=== PATIENT | male | born 1995 | race Hispanic/Latino ===

== ENCOUNTER 2021-06-04 09:03 | Emergency (ER) | payer SELFPAY ==
--- NOTE | 2021-06-04 10:08 | RAD REPORT ---
EXAM DESCRIPTION: RAD - Chest Single View - 06/04/2021 9:57 am CLINICAL HISTORY: COUGH Chest pain. COMPARISON: No comparisons FINDINGS: Portable technique limits examination quality. Interstitial markings are mildly prominent, nonspecific but can indicate viral infection/bronchitis. The heart is normal in size. No displaced fractures.
[2021-06-04 11:11] LABS: Absolute Lymphocytes (CBC) 1.3 K/uL (0.7-4.9); Basophils % 1.3 % (0-1.3); Lymphocytes % 19.8 % (15.3-44.8); MPV 8.9 fL (7.6-11.3); RBC Red Blood Cell Count 5.18 M/uL (4.33-5.43)
[2021-06-04 11:22] LABS: Magnesium 2.6 mg/dL (1.8-2.4); Potassium 3.7 mmol/L (3.5-5.1)
--- NOTE | 2021-06-04 12:51 | ER ---
Nurse's Notes [facility] Name: Rocky Brown Age: 26 yrs Sex: Male : 1995 Arrival Date: 06/04/2021 Time: 09:06 Bed 17 Private MD: Diagnosis: Dehydration;SARS-associated coronavirus as the cause of diseases classified elsewhere Presentation: 06/04 09:16 Chief complaint: Patient states: cough, fatigue, decreased appetite and diarrhea that ss began 10 days. Pt had a negative Covid test at [facility] Friday, but is not feeling any better. Coronavirus screen: Client denies travel out of the [place] in the last 14 days. Ebola Screen: Patient denies exposure to infectious person. Patient denies travel to an Ebola-affected area in the 21 days before illness onset. 09:16 Method Of Arrival: Ambulatory ss 09:21 Initial Sepsis Screen: Does the patient meet any 2 criteria? No. Patient's initial ss sepsis screen is negative. Does the patient have a suspected source of infection? No. Patient's initial sepsis screen is negative. Risk Assessment: Do you want to hurt yourself or someone else? Patient reports no desire to harm self or others. Onset of symptoms was May 25, 2021. 09:21 Acuity: PEGGY 3 ss Triage Assessment: 09:16 General: Appears distressed, uncomfortable, Behavior is cooperative, appropriate for bp age, anxious. Pain: Denies pain. EENT: No signs and/or symptoms were reported regarding the EENT system. Neuro: Level of Consciousness is awake, alert, obeys commands, Oriented to Appropriate for age. Cardiovascular: No deficits noted. Respiratory: Reports cough that is. GI: Reports diarrhea. : No signs and/or symptoms were reported regarding the genitourinary system. Derm: No deficits noted. Musculoskeletal: No deficits noted. Historical: - Allergies: 09:21 No Known Allergies; ss - Home Meds: : None [Active]; ss - PMHx: 09: None; ss - PSHx: 09: None; ss - Immunization history:: Adult Immunizations unknown, Client reports having NOT received the Covid vaccine. - Social history:: Smoking status: Patient denies any tobacco usage or history of. Screenin: Abuse screen: Denies threats or abuse. Denies injuries from another. Nutritional ss screening: No deficits noted. Tuberculosis screening: Never had TB. Fall Risk None identified. Assessment: 09:16 General: SEE TRIAGE NOTE. bp Vital Signs: 09:16 BP 102 / 69; Pulse 84; Resp 18; Temp 97.3(TE); Pulse Ox 100% on R/A; Pain 0/10; ss 10:30 BP 114 / 80 Supine; Pulse 65; bp 10:33 BP 122 / 80 Sitting; Pulse 68; bp 10:37 BP 117 / 93 Standing; Pulse 64; bp 12:00 BP 123 / 79; Pulse 71; Resp 16; Pulse Ox 100% ; bp 13:00 BP 115 / 73; Pulse 75; Resp 17; Temp 97.5; Pulse Ox 100% ; bp ED Course: 09:06 Patient arrived in ED. mr 09:13 Hector Lomax, RN is Primary Nurse. bp 09:19 Ruy Hemphill, PA is PHCP. jr8 09:19 Zach Damon MD is Attending Physician. jr8 09:19 Griffin Oliveira MD is Attending Physician. jr8 09:21 Triage completed. ss 09:21 Arm band placed on right wrist. ss 09:22 Patient has correct armband on for positive identification. Bed in low position. Call ss light in reach. Side rails up X 1. Pulse ox on. NIBP on. 09:22 Patient maintains SpO2 saturation greater than 95% on room air. ss 09:57 XRAY Chest (1 view) In Process Unspecified. EDMS 10:59 Inserted saline lock: 20 gauge in right antecubital area, using aseptic technique. bp Blood collected. 14:17 No provider procedures requiring assistance completed. IV discontinued, intact, bp bleeding controlled, No redness/swelling at site. Pressure dressing applied. Administered Medications: 10:45 Drug: NS 0.9% 1000 ml Route: IV; Rate: 1000 ml; Site: right antecubital; bp 14:18 Follow up: IV Status: Completed infusion; IV Intake: 1000ml bp Intake: 14:18 IV: 1000ml; Total: 1000ml. bp Outcome: 12:50 Discharge ordered by . jr8 14:17 Discharged to home ambulatory, with family. bp 14:17 Condition: stable 14:17 Discharge instructions given to patient, family, Instructed on discharge instructions, follow up and referral plans. medication usage, Demonstrated understanding of instructions, follow-up care, medications, Prescriptions given X 1. 14:18 Patient left the ED. bp Signatures: Dispatcher [employer] ED Candy Burns Sissy Simmons, RN RN Ruy Hemphill, XUAN GOVEA jr8 Hector Lomax, RN RN bp Corrections: (The following items were deleted from the chart) 10:34 09:21 Acuity: PEGGY 4 [facility] 11:42 10:59 CORONAVIRUS+MR.UCHE.HALEY drawn and sent. bp EDMS
--- NOTE | 2021-06-04 12:51 | EDPHYS ---
Physician Documentation [facility] Name: Rocky Brown Age: 26 yrs Sex: Male : 1995 Arrival Date: 06/04/2021 Time: 09:06 Bed 17 Private MD: ED Physician Griffin Oliveira HPI: 06/04 10:16 This 26 yrs old Male presents to ER via Ambulatory with complaints of jr8 Weakness, Cough, Diarrhea. 10:16 Patient stated that he started with diarrhea about 10 days ago which has not resolved. jr8 Stated that he has nausea with eating and dry cough. Was tested at [facility] a few days ago and had negative flu and covid results. Today while at work he started to feel like he was going to pass out. 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 Onset: The symptoms/episode began/occurred acutely. Severity of symptoms: At their worst the symptoms were moderate in the emergency department the symptoms have improved mildly. The patient has not experienced similar symptoms in the past. The patient has not recently seen a physician. Historical: - Allergies: 09:21 No Known Allergies; ss - Home Meds: 09:21 None [Active]; ss - PMHx: 09:21 None; ss - PSHx: 09:21 None; ss - Immunization history:: Adult Immunizations unknown, Client reports having NOT received the Covid vaccine. - Social history:: Smoking status: Patient denies any tobacco usage or history of. ROS: 10:16 Eyes: Negative for injury, pain, redness, and discharge, ENT: Negative for injury, jr8 pain, and discharge, Neck: Negative for injury, pain, and swelling, Cardiovascular: Negative for chest pain, palpitations, and edema, Back: Negative for injury and pain, MS/Extremity: Negative for injury and deformity, Skin: Negative for injury, rash, and discoloration. 10:16 Abdomen/GI: Positive for nausea, diarrhea, Negative for abdominal pain. 10:16 Neuro: Positive for near syncope. 10:16 Constitutional: Positive for fever. jr8 10:16 Respiratory: Positive for cough, Negative for dyspnea on exertion, shortness of breath, sputum production, wheezing. Exam: 10:16 Constitutional: This is a well developed, well nourished patient who is awake, alert, jr8 and in no acute distress. Eyes: Pupils equal round and reactive to light, extra-ocular motions intact. Lids and lashes normal. Conjunctiva and sclera are non-icteric and not injected. Cornea within normal limits. Periorbital areas with no swelling, redness, or edema. ENT: Nares patent. No nasal discharge, no septal abnormalities noted. Tympanic membranes are normal and external auditory canals are clear. Oropharynx with no redness, swelling, or masses, exudates, or evidence of obstruction, uvula midline. Mucous membranes moist. Neck: Trachea midline, no thyromegaly or masses palpated, and no cervical lymphadenopathy. Supple, full range of motion without nuchal rigidity, or vertebral point tenderness. No Meningismus. Cardiovascular: Regular rate and rhythm with a normal S1 and S2. No gallops, murmurs, or rubs. Normal PMI, no JVD. No pulse deficits. Respiratory: Lungs have equal breath sounds bilaterally, clear to auscultation and percussion. No rales, rhonchi or wheezes noted. No increased work of breathing, no retractions or nasal flaring. Abdomen/GI: Soft, non-tender, with normal bowel sounds. No distension or tympany. No guarding or rebound. No evidence of tenderness throughout. Back: No spinal tenderness. No costovertebral tenderness. Full range of motion. Skin: Warm, dry with normal turgor. Normal color with no rashes, no lesions, and no evidence of cellulitis. MS/ Extremity: Pulses equal, no cyanosis. Neurovascular intact. Full, normal range of motion. Neuro: Awake and alert, GCS 15, oriented to person, place, time, and situation. Cranial nerves II-XII grossly intact. Motor strength 5/5 in all extremities. Sensory grossly intact. Vital Signs: 09:16 BP 102 / 69; Pulse 84; Resp 18; Temp 97.3(TE); Pulse Ox 100% on R/A; Pain 0/10; ss 10:30 BP 114 / 80 Supine; Pulse 65; bp 10:33 BP 122 / 80 Sitting; Pulse 68; bp 10:37 BP 117 / 93 Standing; Pulse 64; bp 12:00 BP 123 / 79; Pulse 71; Resp 16; Pulse Ox 100% ; bp 13:00 BP 115 / 73; Pulse 75; Resp 17; Temp 97.5; Pulse Ox 100% ; bp MDM: 09:19 Patient medically screened. [id number] 11:43 Data reviewed: vital signs, nurses notes, lab test result(s), EKG, and as a result, I 8 will discharge patient. Data interpreted: Pulse oximetry: on room air is 100 %. Interpretation: normal. Counseling: I had a detailed discussion with the patient and/or guardian regarding: the historical points, exam findings, and any diagnostic results supporting the discharge/admit diagnosis, lab results, the need for outpatient follow up, a family practitioner, to return to the emergency department if symptoms worsen or persist or if there are any questions or concerns that arise at home. 06/04 09:46 Order name: Basic Metabolic Panel; Complete Time: 11:23 06/04 09:46 Order name: CBC with Diff; Complete Time: 11:18 06/04 09:46 Order name: Magnesium; Complete Time: 11:23 06/04 09:46 Order name: XRAY Chest (1 view); Complete Time: 10:15 06/04 12:47 Order name: SARS-COV-2 RT PCR; Complete Time: 12:51 EDMS 06/04 09:46 Order name: Orthostatics; Complete Time: 10:59 06/04 09:46 Order name: EKG; Complete Time: 09:48 06/04 09:46 Order name: Cardiac monitoring; Complete Time: 10:58 06/04 09:46 Order name: EKG - Nurse/Tech; Complete Time: 10:58 06/04 09:46 Order name: IV Saline Lock; Complete Time: 10:59 06/04 09:46 Order name: Labs collected and sent; Complete Time: 10:59 06/04 09:46 Order name: O2 Sat Monitoring; Complete Time: 09:48 Administered Medications: 10:45 Drug: NS 0.9% 1000 ml Route: IV; Rate: 1000 ml; Site: right antecubital; bp 14:18 Follow up: IV Status: Completed infusion; IV Intake: 1000ml bp Disposition: 16:56 Co-signature as Attending Physician, Griffin Oliveira MD. rn Disposition Summary: 06/04/21 12:50 Discharge Ordered Location: Home jr8 Problem: new jr8 Symptoms: have improved jr8 Condition: Stable jr8 Diagnosis - Dehydration jr8 - SARS-associated coronavirus as the cause of diseases classified elsewhere jr8 Followup: jr8 - With: Private Physician - When: 1 week - Reason: Recheck today's complaints, Continuance of care, Re-evaluation by your physician Discharge Instructions: - Discharge Summary Sheet jr8 - Dehydration, Adult jr8 - Rehydration, Adult jr8 - COVID-19 jr8 Forms: - Work release form ss - Medication Reconciliation Form jr8 - Thank You Letter jr8 - Antibiotic Education jr8 - Prescription Opioid Use jr8 Prescriptions: - ondansetron 4 mg Oral tablet,disintegrating - take 1 tablet by ORAL route every 8 hours As needed; 12 tablet; Refills: 0, jr8 Product Selection Permitted Signatures: Dispatcher [employer] EDMS Griffin Oliveira MD MD rn Smirch, Shelby, RN RN ss Ruy Hemphill PA PA jr8 Hector Lomax, RN RN bp Corrections: (The following items were deleted from the chart) 10:18 10:16 Eyes: Negative for injury, pain, redness, and discharge, ENT: Negative for jr8 injury, pain, and discharge, Neck: Negative for injury, pain, and swelling, Cardiovascular: Negative for chest pain, palpitations, and edema, Respiratory: Negative for shortness of breath, cough, wheezing, and pleuritic chest pain, Back: Negative for injury and pain, MS/Extremity: Negative for injury and deformity, Skin: Negative for injury, rash, and discoloration, jr8 11:42 09:48 CORONAVIRUS+MR.LAB.LUIS CARLOSZ ordered. EDMS EDMS
[2021-06-04 15:18] VITALS: O2SAT 100
[2021-06-04 15:22] VITALS: BP 115/73; TEMP 97.5
--- NOTE | 2021-06-04 16:05 | EKG ---
Test Date: 2021-06-04 Test Time: 10:45:42 [employer] Athletic Director: BP MEASUREMENT RESULTS: Intervals: Rate: 66 [place]: 172 QRSD: 86 QT: 382 QTc: 400 [place]: P: 18 [place]: 172 QRS: 38 T: 10 INTERPRETIVE STATEMENTS: Normal sinus rhythm RSR' or QR pattern in V1 suggests right ventricular conduction delay Borderline ECG No previous ECG available for comparison Electronically Signed On 06-04-21 16:03:41 CDT by Mikhail Wood
== END 2021-06-04 14:18 | disposition home or self-care (01) ==
LOC: ER 09:03
DX: U07.1 COVID-19 (principal); E86.0 Dehydration
CPT/HCPCS: 36415; 71045; 80048; 83735; 85025; 93005; 96360; 96361; 99284; U0003